=== PATIENT | male | born 1970 | race African-American/Black ===

== ENCOUNTER → 2017-08-16 | Outpatient (CLI) | payer BC ==
[~2017-08-16] MED LIST: COUMADIN 5 MG TA5 M1; RYTHMOL SR325 MG
--- NOTE | ~2017-08-16 | 2DMMODE ---
[facility] [address] [place] [address] 2 D/M-MODE ECHOCARDIOGRAM Name: HERACLIO FABIAN Room #: REG [facility]#: [id number] Admission: 08/16/17 Attend Phys: Ayan Bernstein MD Discharge: Date of : 66 Date of Service: 08/16/17 1337 Report #: [id number] THIS REPORT FOR: //name// APPROVED REPORT Study performed: 08/16/2017 12:55:58 EXAM: Comprehensive 2D, Doppler, and color-flow Echocardiogram Patient Location: Out-Patient Status: routine BSA: 1.75 HR: 64 bpm BP: 137/84 mmHg Rhythm: NSR Other Information Study Quality: Good Indications History of atrial flutter s/p cardioversion. Hx: ASD repair. 2D Dimensions RVDd: 40.38 mm LVEF(%): 70.77 (>50%) IVSd: 10.57 (7-11mm) LVOT Diam: 19.80 (18-24mm) LVDd: 40.58 mm PWd: 10.53 (7-11mm) Ascending Ao: 25.87 (22-36mm) LVDs: 24.48 (25-40mm) Aortic Root: 27.69 mm Dubose's LVEF: 70.77 % Volumes Left Atrial Volume (Systole) Single Plane 4CH: 21.77 mL Single Plane 2CH: 27.88 mL LA ESV Index: 15.00 mL/m2 Aortic Valve AoV Peak Hamzah.: 1.32 m/s AO Peak Gr.: 7.02 mmHg LVOT Max P.57 mmHg LVOT Max V: 1.07 m/s DERICK Vmax: 2.48 cm2 Mitral Valve E/A Ratio: 1.3 MV Decel. Time: 187.95 ms [facility] [address] [place] [address] 2 D/M-MODE ECHOCARDIOGRAM Name: HERACLIO FABIAN Room #: REG [facility].#: [id number] Admission: 08/16/17 Attend Phys: Ayan Bernstein MD Discharge: Date of : 66 Date of Service: 08/16/17 1337 Report #: [id number] MV E Max Hamzah.: 0.68 m/s MV A Hamzah.: 0.53 m/s MV PHT: 54.51 ms IVRT: 87.66 ms Pulmonary Valve PV Peak Hamzah.: 1.34 m/s PV Peak Gr.: 7.13 mmHg Pulmonary Vein P Vein S: 0.49 m/s P Vein A: 0.35 m/s P Vein D: 0.57 m/s P Vein A Dur.: 96.9 msec P Vein S/D Ratio: 0.86 Tricuspid Valve TR Peak Hamzah.: 2.17 m/s RAP Estimate: 5.00 mmHg TR Peak Gr.: 18.84 mmHg PA Pressure: 24.00 mmHg Left Ventricle The left ventricle is normal size. There is normal LV segmental wall motion. There is normal left ventricular wall thickness. Left ventricular systolic function is normal. LVEF is 60-65%. Right Ventricle The right ventricle is normal size. The right ventricular systolic function is normal. Atria The left atrium size is normal. The right atrium size is normal. Aortic Valve The aortic valve is normal in structure. Trace aortic regurgitation. There is no aortic valvular stenosis. Mitral Valve The mitral valve is normal in structure. Trace to mild mitral regurgitation. Tricuspid Valve The tricuspid valve is normal in structure. Trace to mild tricuspid regurgitation. Estimated PAP is 25mmHg. Pulmonic Valve The pulmonary valve is normal in structure. Trace to mild pulmonic regurgitation. [address] [address] 2 D/M-MODE ECHOCARDIOGRAM Name: HERACLIO FABIAN Room #: REG [facility]#: [id number] Admission: 08/16/17 Attend Phys: Ayan Bernstein MD Discharge: Date of : 66 Date of Service: 08/16/17 1337 Report #: [id number] Great Vessels The aortic root is normal in size. The ascending aorta is normal in size. IVC is normal in size and collapses >50% with inspiration. Pericardium There is no pericardial effusion. <Conclusion> The left ventricle is normal size. There is normal left ventricular wall thickness. The right ventricle is normal size. The left atrium size is normal. Trace aortic regurgitation. Trace to mild mitral regurgitation. Trace to mild tricuspid regurgitation. Estimated PAP is 25mmHg. <ELECTRONICALLY SIGNED> By: Ayan Bernstein MD 08/16/17 1337 133 133 Ayan Bernstein MD /INF
== END ==
LOC: CV 07-29 07:17
DX: I48.92 Unspecified atrial flutter (principal)

== ENCOUNTER → 2019-08-21 | Outpatient (CLI) | payer BC | LOC: SJCVCIMAG 09:01 | DX: I48.92 Unspecified atrial flutter (principal); R00.1 Bradycardia, unspecified; Q21.1 Atrial septal defect; Z79.82 Long term (current) use of aspirin; Z79.899 Other long term (current) drug therapy ==